=== PATIENT | female | born 1940 | race Caucasian/White ===

== ENCOUNTER 2018-10-02 15:05 | Inpatient (IN) | payer MEDICARE, OTHER ==
[~2018-10-02] VITALS: Ht 162.6 cm; Wt 62.6 kg
[2018-10-02 15:32] LABS: BASOPHILS # (AUTO) 0.1 K/uL (0.0-8.0); BASOPHILS % (AUTO) 0.9 % (0.0-2.0); EOSINOPHILS # (AUTO) 0.1 K/uL (0.0-0.7); EOSINOPHILS % (AUTO) 1.6 % (0.0-7.0); HEMATOCRIT 36.8 % (31.2-41.9); HEMOGLOBIN 12.1 g/dL (10.9-14.3); LYMPHOCYTES # (AUTO) 1.2 K/uL (20.0-40.0); LYMPHOCYTES % (AUTO) 18.7 % (20.5-51.5); MEAN CORPUSCULAR HEMOGLOBIN 27.4 uug (24.7-32.8); MEAN CORPUSCULAR HGB CONC 33 g/dL (32.3-35.6); MEAN CORPUSCULAR VOLUME 83.6 fL (75.5-95.3); MONOCYTES # (AUTO) 0.7 K/uL (2.0-10.0); MONOCYTES % (AUTO) 10.7 % (0.0-11.0); NEUTROPHILS # (AUTO) 4.5 K/uL (1.8-8.9); NEUTROPHILS % (AUTO) 68.1 % (38.5-71.5); PLATELET COUNT (AUTO) 253 K/uL (179-408); WHITE BLOOD COUNT (AUTO) 6.5 K/uL (3.8-11.8)
--- NOTE | 2018-10-02 15:33 | NUR ---
PT IS IN ROOM #2A. DR WEI EVALUATED THE PT. SITTER AT THE [facility]. CONTINUE TO MONITOR THE PT.
[2018-10-02 15:49] LABS: ALANINE AMINOTRANSFERASE 31 U/L (14-59); ALKALINE PHOSPHATASE 99 U/L (50-136); ASPARTATE AMINOTRANSFERASE 13 U/L (15-37); BILIRUBIN,DIRECT 0.1 mg/dL (0.0-0.2); BILIRUBIN,TOTAL 0.2 mg/dL (0.2-1.0); CARBON DIOXIDE 32 mmol/L (21-32); CHLORIDE 98 mmol/L (98-107); CREATININE 0.8 mg/dL (0.6-1.3); GLUCOSE 104 mg/dL (74-106); POTASSIUM 4.8 mmol/L (3.5-5.1); TOTAL PROTEIN, SERUM 6.7 g/dL (6.4-8.2); UREA NITROGEN, BLOOD 21 mg/dL (7-18)
[2018-10-02 15:54] LABS: ACETAMINOPHEN < 2.0 ug/mL (10-30)
[2018-10-02] MEDS ORDERED: ASPI81TA31 PO (16:03)
[2018-10-02] MEDS ORDERED: DIVA125C2 PO (16:03)
[2018-10-02] MEDS ORDERED: ATOR40TA PO (16:03)
[2018-10-02] MEDS ORDERED: ACET-2154 PO (16:03)
[2018-10-02] MEDS ORDERED: METO-357 PO (16:03)
[2018-10-02] MEDS ORDERED: ALPR0.255 PO (16:03)
[2018-10-02] MEDS ORDERED: SERT25TA PO (16:03)
[2018-10-02] MEDS ORDERED: AMLO5TAB9 PO (16:03)
[2018-10-02 16:05] LABS: ETHANOL < 3 MG/DL (0-0)
--- NOTE | 2018-10-02 16:09 | NUR ---
[employer]ISIS GLASS UNLOADING EQUIPMENT TENDER RADHA YOUNGBLOOD WAS CALLED TO EVALUATE THE PT. STEPHANIA IS 2 HOURS.
[2018-10-02 16:30] LABS: *BILIRUBIN,URIN NEGATIVE (NEGATIVE); *BLOOD, URINE NEGATIVE (NEGATIVE); *CLARITY,URINE CLEAR (CLEAR); *COLOR,URINE YELLOW (YELLOW); *KETONES,URINE NEGATIVE (NEGATIVE); *UROBILINOGEN,URINE 0.2 E.U./dl (NORMAL); LEUKOCYTE ESTERASE ,URINE TRACE (NEGATIVE); NITRITE, URINE NEGATIVE (NEGATIVE); PH,URINE 6.5 (5.0-8.0); UGLUCOSE NEGATIVE (NEGATIVE)
[2018-10-02 16:36] LABS: *AMPHETAMINE, URINE NEGATIVE (NEGATIVE); *BARBITURATE, URINE NEGATIVE (NEGATIVE); *CANNABINOID, URINE NEGATIVE (NEGATIVE); *COCCAINE, URINE NEGATIVE (NEGATIVE); *OPIATE, URINE NEGATIVE (NEGATIVE); *PHENCYCLIDINE SCREEN,URINE NEGATIVE (NEGATIVE); BACTERIA,URINE NONE SEEN /HPF (NONE SEEN); RBC,URINE 0-3 /HPF (0-3); SQUAMOUS EPITHELIAL CELL,UR FEW /HPF (NONE SEEN); WBC,URINE 0-3 /HPF (0-3)
--- NOTE | 2018-10-02 18:03 | NUR ---
PT WAS EVALUATED BY RADHA HUERTA.
--- NOTE | 2018-10-02 19:14 | NUR ---
REPORT WAS GIVEN TO RN MHU. PT WAS TRANSFERED TO MHU ROOM #139A.
[2018-10-02 19:20] VITALS: BP 101/46
--- NOTE | 2018-10-02 19:20 | NUR ---
GPS: ADMITTED 78 YEAR OLD FEMALE FROM ER VIA RNEY TO U.UNDER Dr. STREETER. DX: GD. ALERT AND ORIENTED X1 TO NAME ONLY,CONFUSED AND DISORIENTED TO TIME AND PLACE. NO C/O PAIN OR DISCOMFORT AT THIS TIME. PATIENT IS UNCOOPERATIVE WITH STAFF. EASILY GETS AGITATED WHEN REDIRECTED. V/S WNL. ASSISTED WITH ADL'S.CONTINUE MONITORING FOR SAFETY,
[2018-10-02 20:00] VITALS: BP 101/46
[2018-10-02] MEDS ORDERED: TEMAZEPAM 7.5 MG CAPSULE PO PRN (20:15)
[2018-10-02] MEDS ORDERED: ACETAMINOPHEN 325 MG TABLET PO PRN (20:15)
[2018-10-02] MEDS ORDERED: MAG HYDROX/AL HYDROX/SIMETH 30 ML LIQUID UDC PO PRN (20:15)
[2018-10-02] MEDS ORDERED: MAGNESIUM HYDROXIDE 30 ML LIQUID UDC PO PRN (20:15)
[2018-10-02] MEDS: ATORVASTATIN 40 MG TABLET PO SCH (20:29)
--- NOTE | 2018-10-03 06:00 | NUR ---
GPS: Remain confused and disoriented. uncooperative with care. resting in bed comfortably at this time. slept 7:30 hrs through the night. assisted to use bathroom. kept safe. continue monitoring for safety.
[2018-10-03 07:30] VITALS: BP 128/59
[2018-10-03] MEDS: METOPROLOL SUCCINATE XL 50 MG TAB.SR.24H PO SCH (09:00)
[2018-10-03] MEDS: AMLODIPINE 5 MG TABLET PO SCH (09:00)
[2018-10-03] MEDS: ASPIRIN 81 MG TAB.CHEW PO SCH (09:00)
[2018-10-03 16:00] VITALS: BP 120/35
--- NOTE | 2018-10-03 19:45 | NUR ---
RECEIVED PATIENT IN THE HALLWAY. SHE IS NOTED A/O X 1, PACING THE HALLWAY. DISORGANIZED THOUGHTS, FLIGHT OF IDEAS, EASILY IRRITABLE, AND GRANDIOSE IDEATION. 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 NO AGGRESSIVE/COMBATIVE BX NOTED AT THIS TIME. PATIENT WAS GIVEN REALITY CHECKS AND WAS REASSURED FOR HER SAFETY. SHE IS ENCOURAGE TO VERBALIZED FEELINGS. WILL CONTINUE TO MONITOR.
[2018-10-03 20:30] VITALS: BP 126/60
[2018-10-03] MEDS: ATORVASTATIN 40 MG TABLET PO SCH (21:00)
[2018-10-03] MEDS: DIVALPROEX 250 MG TABLET.DR PO SCH (22:30)
[2018-10-03] MEDS: RIVASTIGMINE TARTRATE 1.5 MG CAPSULE PO SCH (22:30)
[2018-10-03] MEDS: risperiDONE 0.25 MG TABLET PO SCH (22:30)
--- NOTE | 2018-10-03 22:30 | NUR ---
PATIENT REFUSED ALL HER PSYCH MEDICATION INCLUDING HER LIPITOR. MULTIPLE REDIRECTION GIVEN, EXPLAINED THE BENEFITS AND SIDE EFFECTS OF NEW MEDICATION; HOWEVER, SHE REFUSED. SHE CONTINUE EASILY IRRITABLE. WILL CONTINUE TO MONITOR,
--- NOTE | 2018-10-04 07:02 | NUR ---
PATIENT SLEPT FOR APPROX 5.30 HRS THROUGH THE NIGHT. SHE CONTINUE CONFUSED DISORGANIZED AND EASILY IRRITABLE. WILL CONTINUE TO MONITOR.
[2018-10-04 07:30] VITALS: BP 123/63
[2018-10-04] MEDS: DIVALPROEX 250 MG TABLET.DR PO SCH ×3 (08:23→17:54)
[2018-10-04] MEDS: ASPIRIN 81 MG TAB.CHEW PO SCH (08:24)
[2018-10-04] MEDS: FLUOXETINE HCL 20 MG CAPSULE PO SCH (08:24)
[2018-10-04] MEDS: AMLODIPINE 5 MG TABLET PO SCH (08:24)
[2018-10-04] MEDS: METOPROLOL SUCCINATE XL 50 MG TAB.SR.24H PO SCH (08:24)
[2018-10-04] MEDS: risperiDONE 0.25 MG TABLET PO SCH ×2 (08:27→20:50)
[2018-10-04] MEDS: RIVASTIGMINE TARTRATE 1.5 MG CAPSULE PO SCH ×2 (08:29→20:50)
[2018-10-04 16:00] VITALS: BP 104/29
--- NOTE | 2018-10-04 20:00 | NUR ---
RECEIVED PATIENT IN HER ROOM SITTING IN HER BED. SHE IS NOTED A/O X 1. SHE IS ABLE TO AMBULATE WITH STEADY GAIT AND ABLE TO MAKE HER NEEDS KNOWN. PT NOTED EASILY IRRITABLE, AFFECT LABILE. CONTINUE CONFUSED, DISORGANIZED, FLIGHT OF IDEAS. NO AGGRESSIVE/COMBATIVE BX NOTED AT THIS TIME. PT WAS REASSURED FOR HER SAFETY AND ENCOURAGE TO VERBALIZED FEELING. WILL CONTINUE TO MONITOR.
[2018-10-04 20:03] VITALS: BP 124/54
[2018-10-04] MEDS: ATORVASTATIN 40 MG TABLET PO SCH (20:50)
--- NOTE | 2018-10-04 21:00 | NUR ---
PATIENT WAS ABLE TO TAKE ALL HER QHS MEDICATION, NOTED LESS IRRITABLE AND COMPLIANT WITH NURSING CARE. WILL CONTINUE TO MONITOR.
[2018-10-05 07:30] VITALS: BP 128/55
[2018-10-05] MEDS: METOPROLOL SUCCINATE XL 50 MG TAB.SR.24H PO SCH (08:24)
[2018-10-05] MEDS: RIVASTIGMINE TARTRATE 1.5 MG CAPSULE PO SCH ×2 (08:24→20:39)
[2018-10-05] MEDS: FLUOXETINE HCL 20 MG CAPSULE PO SCH (08:25)
[2018-10-05] MEDS: ASPIRIN 81 MG TAB.CHEW PO SCH (08:25)
[2018-10-05] MEDS: DIVALPROEX 250 MG TABLET.DR PO SCH ×3 (08:25→16:52)
[2018-10-05] MEDS: AMLODIPINE 5 MG TABLET PO SCH (08:25)
[2018-10-05] MEDS: risperiDONE 0.25 MG TABLET PO SCH (08:25)
--- NOTE | 2018-10-05 10:54 | NUR ---
Firearms Report: DARRON completed and submitted [employer] Firearms Report for 5250 GD certification.
--- NOTE | 2018-10-05 12:35 | NUR ---
Initial Discharge Instructions: Patient is a current resident of [facility] [[address] [place] [address]; ]. Per pt, she would like to return there upon discharge. Spoke with pt's niece, Josselyn Restrepo ([phone]) who states she would also like pt to return to her SNF when she is ready for DC. DARRON left a message for pt's brother, Jamie Tyler ([phone]), per chart, he is pt's DPOA. DARRON also left a message for Admissions at [facility] to confirm pt can return to their facility. DARRON will continue to collaborate with pt, family, and MD regarding most appropriate discharge plans for this patient. DARRON will form a safe and proper discharge plan.
[2018-10-05] MEDS: LORAZEPAM 0.5 MG TABLET PO PRN (13:53)
[2018-10-05] MEDS: METFORMIN XR 500 MG TAB.SR.24H PO SCH (16:52)
--- NOTE | 2018-10-05 18:01 | NUR ---
Received patient awake on bed, verbally responsive, denies pain, ,in good mood, denies suicidal ideation, denies SOB and other discomfort at this time, with VS WNL, BP128/55 P63 T97.8 R18 PO2 98% room air, 0/10 pain scale, patient compliant to medication , at around 2pm in the afternoon the patient started to shout at the nursing station and says that she owns the place, patient easily irritated, redirect patient and tried to give PRN medication, patient refused, and went back to her room,patient calms down and took a nap, patient been pleasant the whole afternoon , will continue monitor
[2018-10-05 20:04] VITALS: BP 141/50
[2018-10-05] MEDS: risperiDONE 0.5 MG TABLET PO SCH (20:39)
[2018-10-05] MEDS: ATORVASTATIN 40 MG TABLET PO SCH (20:39)
[2018-10-06 07:18] LABS: CARBON DIOXIDE 30 mmol/L (21-32); CHLORIDE 99 mmol/L (98-107); CREATININE 0.9 mg/dL (0.6-1.3); GLUCOSE 99 mg/dL (74-106); POTASSIUM 4.5 mmol/L (3.5-5.1); UREA NITROGEN, BLOOD 16 mg/dL (7-18)
[2018-10-06 07:30] VITALS: BP 122/49
[2018-10-06] MEDS: DIVALPROEX 250 MG TABLET.DR PO SCH ×3 (08:55→16:25)
[2018-10-06] MEDS: ASPIRIN 81 MG TAB.CHEW PO SCH (08:55)
[2018-10-06] MEDS: risperiDONE 0.5 MG TABLET PO SCH ×2 (08:55→20:09)
[2018-10-06] MEDS: FLUOXETINE HCL 20 MG CAPSULE PO SCH (08:55)
[2018-10-06] MEDS: RIVASTIGMINE TARTRATE 1.5 MG CAPSULE PO SCH ×2 (08:55→20:10)
[2018-10-06] MEDS: METOPROLOL SUCCINATE XL 50 MG TAB.SR.24H PO SCH (09:00)
[2018-10-06] MEDS: AMLODIPINE 5 MG TABLET PO SCH (09:00)
[2018-10-06] MEDS: LORAZEPAM 0.5 MG TABLET PO PRN (12:58)
[2018-10-06 16:42] VITALS: BP 126/54
[2018-10-06] MEDS: METFORMIN XR 500 MG TAB.SR.24H PO SCH (17:25)
[2018-10-06] MEDS: ATORVASTATIN 40 MG TABLET PO SCH (20:09)
[2018-10-07] MEDS: LORAZEPAM 0.5 MG TABLET PO PRN ×2 (07:23→12:47)
[2018-10-07 07:30] VITALS: BP 157/62
[2018-10-07] MEDS: AMLODIPINE 5 MG TABLET PO SCH (08:23)
[2018-10-07] MEDS: risperiDONE 0.5 MG TABLET PO SCH (08:23)
[2018-10-07] MEDS: RIVASTIGMINE TARTRATE 1.5 MG CAPSULE PO SCH ×2 (08:23→20:36)
[2018-10-07] MEDS: ASPIRIN 81 MG TAB.CHEW PO SCH (08:23)
[2018-10-07] MEDS: DIVALPROEX 250 MG TABLET.DR PO SCH ×3 (08:23→16:57)
[2018-10-07] MEDS: FLUOXETINE HCL 20 MG CAPSULE PO SCH (08:23)
[2018-10-07] MEDS: METOPROLOL SUCCINATE XL 50 MG TAB.SR.24H PO SCH (08:24)
[2018-10-07] MEDS: METFORMIN XR 500 MG TAB.SR.24H PO SCH (17:08)
[2018-10-07 17:17] VITALS: BP 119/70
[2018-10-07 20:30] VITALS: BP 141/51
[2018-10-07] MEDS: ATORVASTATIN 40 MG TABLET PO SCH (20:36)
[2018-10-07] MEDS: risperiDONE 1 MG TABLET PO SCH (20:36)
--- NOTE | 2018-10-07 21:28 | NUR ---
RECEIVED PATIENT ASLEEP IN BED AND WAS VERBALLY RESPONSIVE.NOT IN ACUTE DISTRESS OR SOB. DENIES PAIN OR DISCOMFORT. SHE IS COMPLIANT WITH MEDS IN APPLE SAUCE.SHE ALSO DENIES A/H BUT APPEARS WITHDRAWN WITH MINIMAL DISCLOSURE.WILL CONTINUE TO MONITOR.
--- NOTE | 2018-10-08 06:49 | NUR ---
SLEPT WELL FOR 10;30HRS.
[2018-10-08] MEDS: ASPIRIN 81 MG TAB.CHEW PO SCH (08:21)
[2018-10-08] MEDS: DIVALPROEX 250 MG TABLET.DR PO SCH ×3 (08:22→16:29)
[2018-10-08] MEDS: FLUOXETINE HCL 20 MG CAPSULE PO SCH (08:22)
[2018-10-08] MEDS: AMLODIPINE 5 MG TABLET PO SCH (08:22)
[2018-10-08] MEDS: risperiDONE 1 MG TABLET PO SCH ×2 (08:22→20:40)
[2018-10-08] MEDS: RIVASTIGMINE TARTRATE 1.5 MG CAPSULE PO SCH ×2 (08:22→20:40)
[2018-10-08] MEDS: METOPROLOL SUCCINATE XL 50 MG TAB.SR.24H PO SCH (08:22)
[2018-10-08] MEDS: LORAZEPAM 0.5 MG TABLET PO PRN (12:55)
[2018-10-08 15:25] VITALS: BP 101/55
[2018-10-08] MEDS: METFORMIN XR 500 MG TAB.SR.24H PO SCH (17:00)
--- NOTE | 2018-10-08 18:17 | NUR ---
received patient asleep on bed, verbally responsive, self care compliant to medication, patient compliant to medication, able to verbalize her needs, patient denies Suicidal ideation, at 2pm patient started to become agitated, prn medication given, no SOB no discomfort noted, all needs met will continue monitor
[2018-10-08 20:37] VITALS: BP 114/51
[2018-10-08] MEDS: ATORVASTATIN 40 MG TABLET PO SCH (20:40)
--- NOTE | 2018-10-09 06:06 | NUR ---
Patient was resting comfortably in bed through out the night. Patient is compliant with medication administration and medical treatment. Will continue to monitor the patient and endorse plan of care to oncoming nurse.
[2018-10-09 07:30] VITALS: BP 113/59
[2018-10-09] MEDS: FLUOXETINE HCL 20 MG CAPSULE PO SCH (08:32)
[2018-10-09] MEDS: DIVALPROEX 250 MG TABLET.DR PO SCH ×3 (08:32→16:20)
[2018-10-09] MEDS: ASPIRIN 81 MG TAB.CHEW PO SCH (08:32)
[2018-10-09] MEDS: RIVASTIGMINE TARTRATE 1.5 MG CAPSULE PO SCH ×2 (08:32→20:45)
[2018-10-09] MEDS: METOPROLOL SUCCINATE XL 50 MG TAB.SR.24H PO SCH (08:33)
[2018-10-09] MEDS: AMLODIPINE 5 MG TABLET PO SCH (08:33)
[2018-10-09] MEDS: risperiDONE 1 MG TABLET PO SCH ×2 (08:34→20:45)
--- NOTE | 2018-10-09 09:43 | NUR ---
Company Manager Discharge Planning: DARRON called and spoke to Concepcion at [facility] [[address] [place] [address]; ]. Concepcion confirmed that the patient will be able to return to their facility when she is ready to be discharged. DARRON called and spoke to patient's nieceJosselyn ([phone]) to discuss patient's prognosis and discharge planning. DARRON provided opportunity for pt's niece to express concerns and ventilate feelings. DARRON provided reassurance to niece that pt will be able to return to her facility. DARRON assured niece that she would be contacted when patient is ready for discharge. Niece expressed gratitude. DARRON will continue to follow-up and collaborate with pt's niece, pt's facility, and MD to ensure safe discharge for pt.
[2018-10-09 16:52] VITALS: BP 126/46
[2018-10-09] MEDS: METFORMIN XR 500 MG TAB.SR.24H PO SCH (17:54)
--- NOTE | 2018-10-09 18:04 | NUR ---
- received patient on bed, in good mood denies pain and other discomfort, med compliant, seen patient watching tv in the activity room and interacts with staff and other patient, patient cheerful, bed on lock, non skid sock on, all needs met will continue monitor
[2018-10-09] MEDS: ATORVASTATIN 40 MG TABLET PO SCH (20:45)
[2018-10-09 22:15] VITALS: BP 123/44
[2018-10-10 07:30] VITALS: BP 136/49
[2018-10-10] MEDS: RIVASTIGMINE TARTRATE 1.5 MG CAPSULE PO SCH ×2 (08:10→21:16)
[2018-10-10] MEDS: risperiDONE 1 MG TABLET PO SCH ×2 (08:10→21:16)
[2018-10-10] MEDS: FLUOXETINE HCL 20 MG CAPSULE PO SCH (08:10)
[2018-10-10] MEDS: DIVALPROEX 250 MG TABLET.DR PO SCH ×3 (08:11→16:24)
[2018-10-10] MEDS: ASPIRIN 81 MG TAB.CHEW PO SCH (08:11)
[2018-10-10] MEDS: METOPROLOL SUCCINATE XL 50 MG TAB.SR.24H PO SCH (08:21)
[2018-10-10] MEDS: AMLODIPINE 5 MG TABLET PO SCH (09:17)
--- NOTE | 2018-10-10 15:45 | NUR ---
GROUP NOTE: Group topic was focused on how to talk with your doctor and advocate for yourself Subjective: "I like all types of food" Objective: Patient expressed interest in attending group and was present for only part of the group. Patient got up and left after beginning of group while other attendees were speaking. Patient appeared to be disengaged from group. Assessment: Patient presented with flat affect and congruent mood. Patient presented with normal speech. Patient needs frequent encouragement to attend group. Plan: mining support worker will continue to encourage group attendance as scheduled. mining support worker will continue to provide support to the patient to encourage participation.
[2018-10-10 16:00] VITALS: BP 135/63
[2018-10-10] MEDS: METFORMIN XR 500 MG TAB.SR.24H PO SCH (17:28)
--- NOTE | 2018-10-10 18:06 | NUR ---
received patient on bed, in good mood denies pain and other discomfort, med compliant, ambulatory, took shower today seen patient watching tv in the activity room and interacts with staff and other patient, patient cheerful, bed on lock, non skid sock on, all needs met will continue monitor
[2018-10-10] MEDS: ATORVASTATIN 40 MG TABLET PO SCH (21:16)
[2018-10-10 21:18] VITALS: BP 142/68
--- NOTE | 2018-10-11 06:13 | NUR ---
GPS: Remain calm and cooperative with medications and care. Patient was resting comfortably in bed through out the night. slept 7:30 hrs through the night. continue monitor for safety.
[2018-10-11 07:30] VITALS: BP 139/51
[2018-10-11] MEDS: DIVALPROEX 250 MG TABLET.DR PO SCH ×3 (08:26→17:02)
[2018-10-11] MEDS: RIVASTIGMINE TARTRATE 1.5 MG CAPSULE PO SCH ×2 (08:26→20:48)
[2018-10-11] MEDS: risperiDONE 1 MG TABLET PO SCH ×2 (08:26→20:47)
[2018-10-11] MEDS: FLUOXETINE HCL 20 MG CAPSULE PO SCH (08:26)
[2018-10-11] MEDS: AMLODIPINE 5 MG TABLET PO SCH (08:26)
[2018-10-11] MEDS: ASPIRIN 81 MG TAB.CHEW PO SCH (08:26)
[2018-10-11] MEDS: METOPROLOL SUCCINATE XL 50 MG TAB.SR.24H PO SCH (08:27)
[2018-10-11 16:00] VITALS: BP 106/31
[2018-10-11] MEDS: METFORMIN XR 500 MG TAB.SR.24H PO SCH (17:02)
[2018-10-11] MEDS: CEphaleXIN 500 MG CAPSULE PO SCH (17:02)
--- NOTE | 2018-10-11 17:59 | NUR ---
Gps/Green Building Energy Engineer- Stayed in her room most of the time, occ dry coughing noted, adequate fluid intake, oral abx. started as ordered, denies any discomfort. Complained od upset stomach relieved w/ mylanta.
--- NOTE | 2018-10-11 19:45 | NUR ---
RECEIVED PATIENT IN HER ROM IN BED ASLEEP, BUT EASILY AROUSABLE. PATIENT NOTED A/O X 2. SHE IS ABLE TO AMBULATE WITH STEADY GAIT AND ABLE TO MAKE HER NEEDS KNOWN. PATIENT NOTED CALM AND PLEASANT UPON APPROACHED. LESS IRRITABLE, CONTINUE ISOLATIVE, WITHDRAWN, EVASIVE AND PASSIVE. PT DENIES SI/HI/VH/AH. V/S STABLE AT THIS TIME SHE IS ENCOURAGE TO VERBALIZED FEELINGS AND SHE WAS REASSURED FOR HER SAFETY. WILL CONTINUE TO MONITOR.
[2018-10-11 20:24] VITALS: BP 106/49
[2018-10-11] MEDS: ATORVASTATIN 40 MG TABLET PO SCH (20:56)
[2018-10-12 07:30] VITALS: BP 115/46
[2018-10-12 09:00] VITALS: BP 115/46
[2018-10-12] MEDS: METOPROLOL SUCCINATE XL 50 MG TAB.SR.24H PO SCH (09:00)
[2018-10-12] MEDS: AMLODIPINE 5 MG TABLET PO SCH (09:00)
[2018-10-12] MEDS: FLUOXETINE HCL 20 MG CAPSULE PO SCH (10:29)
[2018-10-12] MEDS: CEphaleXIN 500 MG CAPSULE PO SCH (10:29)
[2018-10-12] MEDS: RIVASTIGMINE TARTRATE 1.5 MG CAPSULE PO SCH (10:29)
[2018-10-12] MEDS: DIVALPROEX 250 MG TABLET.DR PO SCH ×2 (10:29→13:32)
[2018-10-12] MEDS: ASPIRIN 81 MG TAB.CHEW PO SCH (10:29)
[2018-10-12] MEDS: risperiDONE 1 MG TABLET PO SCH (10:29)
--- NOTE | 2018-10-12 10:31 | NUR ---
DC Note: Patient will be discharging back to [facility] [[address] [place] [address]; [phone]] via private transportation at 2pm. Spoke with Concepcion at the facility who states they are ready to accept the patient today. Spoke with patients Josselyn dale ([phone]) who will be providing the transportation and is aware and agreeable with discharge plans. Patient is alert and oriented x2-3 and is cooperative. Patient will follow-up at the facility with Dr. David (Sales Supervisor) and Dr. Hernnadez (Psychiatrist). Patient was given outpatient mental health resources to [facility] ([phone]); [facility] ([phone]), and the National Suicide Prevention Lifeline (National Suicide Prevention Lifeline ).
--- NOTE | 2018-10-12 14:59 | NUR ---
Pt is being picked up by her niece Lorenzo Restrepo to be taken to [place] [facility]. Pt is alert and oriented x 3. VS are stable. no pain, no distress. Pt is aware and willing to go. Report was called and given to JUSTO Sky
== END 2018-10-12 15:23 | DRG 885 ==
LOC: ER 15:05 → GPS 18:45
PROVIDERS: ADMIT Psychiatry & Neurology Psychiatry; ATTEND Nurse Practitioner Acute Care
DX: F39 Unspecified mood [affective] disorder (principal); F03.91 Unspecified dementia, unspecified severity, with behavioral disturbance; E87.1 Hypo-osmolality and hyponatremia; S82.002K Unspecified fracture of left patella, subsequent encounter for closed fracture with nonunion; N39.0 Urinary tract infection, site not specified; Z87.891 Personal history of nicotine dependence; J44.9 Chronic obstructive pulmonary disease, unspecified; Z79.82 Long term (current) use of aspirin; Z79.899 Other long term (current) drug therapy; I10 Essential (primary) hypertension; R26.2 Difficulty in walking, not elsewhere classified; X58.XXXD Exposure to other specified factors, subsequent encounter; Z87.19 Personal history of other diseases of the digestive system; Z91.14 Patient's other noncompliance with medication regimen; E11.9 Type 2 diabetes mellitus without complications; I70.0 Atherosclerosis of aorta
CPT/HCPCS: 36415; 71045; 80164; 80307; 85025; 93005; A4663; G0480; G0480-TC; J3490